=== PATIENT | female | born 1985 | race Caucasian/White ===

== ENCOUNTER → 2017-11-23 18:59 | Outpatient (CLI) | payer MEDICAID | END | disposition home or self-care (01) | LOC: D.LABREF 18:59 | DX: N39.0 Urinary tract infection, site not specified (principal); R31.9 Hematuria, unspecified ==

== ENCOUNTER 2017-12-13 07:07 | Day surgery (SDC) | payer MEDICAID ==
[~2017-12-13] VITALS: Ht 157.5 cm; Wt 46.3 kg
--- NOTE | ~2017-12-13 | OP ---
PATIENT NAME: GEOFFREY BRASWELL MEDICAL RECORD: [id number] :86 LOCATION:D.OPS ADMISSION DATE: SURGEON: BUBBA ZIMMERMAN MD DATE OF OPERATION: 12/13/2017 SURGEON: Bubba Zimmerman MD ANESTHESIA: MAC by Chaitanya Gusman CRNA. PREOPERATIVE DIAGNOSES: Gross hematuria, interstitial cystitis. PROCEDURES: Cystoscopy, intravesical Rimso instillation times 50 mL. FINDINGS: Single ureteral orifices bilaterally. Inflamed bladder, which became more erythematous with bladder filling. No bladder tumors. BLOOD LOSS: None. CLINICAL HISTORY: This is a 32-year-old female, who is a nonsmoker. She has had gross hematuria, which is painless for the past [address] Cariron for kidney stones in the past. He obtained a urine culture and noted that she had E. coli UTI at that time. She then had a CT scan performed at [facility], which was normal. She continued to have occasional episodes of gross hematuria and UTI symptoms. She comes today to have cystoscopy done for the hematuria workup. If we note bladder inflammation as a possible cause of hematuria, then we will start treatment with intravesical Rimso, which is an anti-inflammatory. The patient is not allergic to any medications. She was given ampicillin and sulbactam mission assessment specialist to the OR. DESCRIPTION OF PROCEDURE: The patient was given IV sedation. She was then placed in the dorsal lithotomy position. A 17-Yoruba cystoscope with 70-degree lens was used for visualization. The findings are as outlined above. The trigone and part of the bladder wall was quite vascular. When we filled the bladder up to capacity, the entire bladder surface was quite erythematous and there was some spontaneous bleeding seen. No bladder tumors were seen. The bladder was then emptied through the cystoscope and then the scope was removed. We inserted a red rubber catheter and injected the Rimso 50 solution via a 60 mL catheter-tip syringe. The catheter was then removed, leaving the solution in the bladder. The patient will hold the solution for at least 15 minutes and then void it out. She will come to the office next week to have the second treatment done. TRANSINT:[id number] Voice Confirmation ID: [id number] DOCUMENT ID: [id number] BUBBA ZIMMERMAN MD at 7325 CC: [id number] DICTATION DATE: 12/13/17 1235 UTILITY ASSEMBLER: 12/13/17 1251 [facility] [place] 12/13/17 [place] [id number] [place] [id number]
[2017-12-13 07:45] LABS: HEMATOCRIT 34.8 % (36.0-48.0); HEMOGLOBIN 11.9 g/dL (12-16); MCH 32.7 pg (26.0-34.0); MCHC 34.2 g/dL (31.0-37.0); MCV 95.6 fL (80.0-100.0); MEAN PLATELET VOLUME 10.2 fL (7.4-10.4); RBC 3.64 10x6/uL (4.00-5.40); RDW 12.2 % (11.5-14.5); WBC 3.4 10x3/uL (4.8-10.8)
[2017-12-13 07:54] VITALS: BP 102/69; Ht 157.5 cm; Wt 46.3 kg
[2017-12-13 11:36] LABS: HCG URINE NEGATIVE (NEGATIVE)
== END 2017-12-13 14:10 | disposition home or self-care (01) ==
LOC: D.OPS 07:07
PROVIDERS: Anesthesiology; Urology
DX: R31.0 Gross hematuria (principal); N30.11 Interstitial cystitis (chronic) with hematuria; Z01.812 Encounter for preprocedural laboratory examination

== ENCOUNTER → 2017-12-21 10:17 | Outpatient (CLI) | payer MEDICAID ==
[2017-12-13 07:54] VITALS: BMI 18.7
== END | disposition home or self-care (01) ==
LOC: D.US 10:17
DX: R06.02 Shortness of breath (principal); R10.11 Right upper quadrant pain

== ENCOUNTER → 2018-01-09 12:57 | Outpatient (CLI) | payer MEDICAID ==
[2017-12-13 07:54] VITALS: BMI 18.7
== END | disposition home or self-care (01) ==
LOC: D.LABREF 12:57
DX: N39.0 Urinary tract infection, site not specified (principal)

== ENCOUNTER → 2018-01-11 07:56 | Outpatient (CLI) | payer MEDICAID ==
[2017-12-13 07:54] VITALS: BMI 18.7
[2018-01-14 13:13] LABS: ANTIGLIADIN IGA <1 units (0-19); ANTIGLIADIN IGG 31 units (0-19); IMMUNOGLOBULIN A <5 mg/dL (87-352)
[2018-01-15 14:19] LABS: T-TRANSGLUTAMINASE IGA <2 U/mL (0-3)
== END | disposition home or self-care (01) ==
LOC: D.NM 07:56
PROVIDERS: Internal Medicine Gastroenterology
DX: R10.13 Epigastric pain (principal); R10.9 Unspecified abdominal pain

== ENCOUNTER → 2018-02-06 19:13 | Outpatient (CLI) | payer MEDICAID ==
[2017-12-13 07:54] VITALS: BMI 18.7
== END | disposition home or self-care (01) ==
LOC: D.LABREF 19:13
DX: N39.0 Urinary tract infection, site not specified (principal)

== ENCOUNTER → 2018-04-10 13:48 | Outpatient (CLI) | payer MEDICAID ==
[2017-12-13 07:54] VITALS: BMI 18.7
== END | disposition home or self-care (01) ==
LOC: D.LABREF 13:48
DX: N39.0 Urinary tract infection, site not specified (principal)

== ENCOUNTER 2018-11-21 06:19 | Day surgery (SDC) | payer MEDICAID ==
[~2018-11-21] VITALS: Ht 157.5 cm; Wt 46.3 kg
[2018-11-21 06:42] LABS: HEMOGLOBIN 13.2 g/dL (12-16); MCH 33.3 pg (26.0-34.0); MCHC 33.8 g/dL (31.0-37.0); MCV 98.5 fL (80.0-100.0); MEAN PLATELET VOLUME 10.9 fL (7.4-10.4); RBC 3.96 10x6/uL (4.00-5.40); RDW 12.4 % (11.5-14.5); WBC 3.3 10x3/uL (4.8-10.8)
[2018-11-21 07:56] VITALS: BP 102/61; Ht 157.5 cm; Wt 46.3 kg
[2018-11-21 08:10] LABS: HCG URINE NEGATIVE (NEGATIVE)
--- NOTE | 2018-11-21 10:30 | NUR ---
REC'D FROM SURGERY. FAMILY AT BEDSIDE. ENCOURAGED PATIENT TO HOLD URINE LONG POSSIBLE AND TURN FROM SIDE TO SIDE TO MOVE MEDICATION AROUND BEFORE VOIDING. VERBALIZED UNDERSTANDING.
--- NOTE | 2018-11-21 10:35 | NUR ---
FL TRAChristy SERVED HOWEVER IS ON A GLUTEN FREE DIET AND ONLY DRANKED THE MILK. RELATES SHE DOESN'T WANT ANYTHING ELSE. DR ZIMMERMAN IN AND TALKING WITH PT AND PARENT. QUESTIONS ANSWERED.
--- NOTE | 2018-11-21 11:00 | NUR ---
AMBULATED TO BATHROOM AND VOIDED WITHOUT DIFFICULTY, RELATES HER DAD HAD GONE TO THE CAFETERIA TO EAT. IV DC'D WITH CATHETER INTACT.
--- NOTE | 2018-11-21 11:20 | NUR ---
WRITTEN AND VERBAL DC INST GIVEN TO PT. VERBALIZED UNDERSTANDING.
--- NOTE | 2018-11-21 11:29 | OP ---
PATIENT NAME: GEOFFREY BRASWELL MEDICAL RECORD: [id number] :86 LOCATION:D.OPS ADMISSION DATE: SURGEON: BUBBA ZIMMERMAN MD DATE OF OPERATION: 11/21/2018 SURGEON: Bubba Zimmerman MD ANESTHESIA: TIVA by Doe Lanza CRNA DIAGNOSIS: Chronic interstitial cystitis. PROCEDURES: Cystoscopy, hydrodistention of the bladder to 600 mL, intravesical Rimso instillation 50 mL. FINDINGS: Inflamed bladder with no bladder tumors. Single ureteral orifices bilaterally. ESTIMATED BLOOD LOSS: None. SPECIMENS: None. CLINICAL HISTORY: This is a 32-year-old female, who has a history of pelvic pain, dysuria, dyspareunia and microscopic hematuria. She has been treated with intravesical Rimso in the past. Lately, her symptoms have flared up for the past 2 months. In the past, Rimso did offer her relief. She is currently also being tested in [place] for lupus. She comes today to have cystoscopy, hydrodistention and intravesical Rimso instillation to speed up the control of the symptoms from the interstitial cystitis. SHE IS ALLERGIC TO STADOL. She was given Ancef poison information specialist to the OR. DESCRIPTION OF PROCEDURE: The patient was given IV sedation. She was then placed into dorsal lithotomy position and prepped and draped. A 17-[place]izen [place] cystoscope with 30-degree lens was used for visualization. Findings are as outlined above. We continued to fill her bladder until about 600 mL was in the bladder. At this point, the bladder fluid started to leak out around the scope. The pressure was maintained for about a minute and then the bladder was drained through the cystoscope sheath. The scope was then removed. We inserted a red rubber catheter, 14-[place]izen [place] in size. A 50 mL of Rimso solution were then instilled into the bladder through the red rubber catheter. The catheter was then removed, leaving the solution in the bladder. The patient will hold the solution in for 15 minutes and then void it out. I will see her next week in followup for Rimso treatment #2. TRANSINT:[id number] Voice Confirmation ID: [id number] DOCUMENT ID: [id number] BUBBA ZIMMERMAN MD at 1129 CC: [id number] DICTATION DATE: 11/21/18 1029 CLOTH EXAMINER MACHINE: 11/21/18 1040 [facility] [address] [place] [id number]
--- NOTE | 2018-11-21 11:35 | NUR ---
DC'D HOME WITH FAMILY VIA PRIVATE VEHICLE. TAKEN TO VEHICLE VIA WC. STABLE AT TIME OF DC.
== END 2018-11-21 11:35 | disposition home or self-care (01) ==
LOC: D.OPS 06:19 → D.PAN 11:20 → D.OPS 11:35 → D.PAN 13:30 → D.OPS 13:30
PROVIDERS: Anesthesiology; Urology
DX: N30.10 Interstitial cystitis (chronic) without hematuria (principal); Z79.2 Long term (current) use of antibiotics; Z79.52 Long term (current) use of systemic steroids; Z79.899 Other long term (current) drug therapy; I31.9 Disease of pericardium, unspecified; Z01.812 Encounter for preprocedural laboratory examination

== ENCOUNTER 2019-02-18 08:15 | Day surgery (SDC) | payer MEDICAID ==
[~2019-02-18] VITALS: Ht 157.5 cm; Wt 46.3 kg
[2019-02-18 08:38] LABS: HEMATOCRIT 38.4 % (36.0-48.0); HEMOGLOBIN 13.1 g/dL (12-16); MCH 33.2 pg (26.0-34.0); MCHC 34.1 g/dL (31.0-37.0); MCV 97.5 fL (80.0-100.0); MEAN PLATELET VOLUME 10.3 fL (7.4-10.4); RBC 3.94 10x6/uL (4.00-5.40); RDW 12.2 % (11.5-14.5); WBC 3.6 10x3/uL (4.8-10.8)
[2019-02-18 12:33] VITALS: BP 112/73; Ht 157.5 cm; Wt 46.3 kg
[2019-02-18 13:17] LABS: HCG URINE NEGATIVE (NEGATIVE)
--- NOTE | 2019-02-18 15:06 | NUR ---
1450 ROUNDS BY ELSIE MARSHALL. PROCEDURE DISCUSSED WITH PATIENT. RX FOR NORCO 5NG TO CHART. PT SERFVED FULL LIQUID DIET. Samson SU R.N. [id number] REPORT TO [place] MENDOZA R.N.. Samson SU R.N.
--- NOTE | 2019-02-18 15:11 | NUR ---
6350 REPORT FROM PIEDAD SU RN. [id number] A NORCO TAKEN TO ROOM PT DECLINED BECAUSE OF NAUSEA, NO EMESIS, COOL CLOTH TO FACE, BASIN PROVIDED, NORCO HELT AT THIS TIME. CALL LIGHT AT BEDSIDE IV OPEN.
--- NOTE | 2019-02-18 15:46 | NUR ---
1540 UP TO BR VOIDS BLOODY URINE, NAUSEA WITHOUT EMESIS WITH AMBULATION, STATES WILL TAKE SOMETHING FOR NAUSEA NOW, ORDERED ZOFRAN AND GIVEN PER EMAR. COOL CLOTH TO FACE. STATES URINATION BURNED.
--- NOTE | 2019-02-19 08:33 | OP ---
PATIENT NAME: GEOFFREY VELASCO MEDICAL RECORD: [id number] :86 LOCATION:D.OPS ADMISSION DATE: SURGEON: BUBBA ZIMMERMAN MD DATE OF OPERATION: 02/18/2019 SURGEON: Bubba Zimmerman MD ANESTHESIA: TIVA by Radha Saha CRNA. DIAGNOSES: Interstitial cystitis, urge urinary incontinence. PROCEDURES: Cystoscopy, hydrodistention of the bladder, intravesical Botox injection 100 units, and intravesical Rimso instillation 50 mL. FINDINGS: Single ureteral orifices bilaterally. No bladder tumors. Diffuse bladder inflammation. ESTIMATED BLOOD LOSS: None. CLINICAL HISTORY: This is a 33-year-old female, who has a longstanding history of interstitial cystitis. She has been treated with intravesical Rimso in the past. It did work, but it only lasted for about 2 months and then the symptoms had come back. She has suprapubic pain with pelvic pain and dyspareunia. She has urinary urgency and frequency and occasional urge incontinence. These have not responded to any overactive bladder medications. She comes today to have a hydrodistention as well as intravesical Rimso as well as intravesical Botox to try to control her symptoms. She is not allergic to medications. She was given Ancef waiter/waitress second class to the OR. DESCRIPTION OF PROCEDURE: The patient was given IV sedation. She was placed in dorsal lithotomy position and prepped and draped. The cystoscope was introduced using an obturator. She has diffuse bladder inflammation noted. Hydrodistention was performed by inflating the bladder to 500 mL and holding the bladder in the underdistended state for 2-3 minutes. During that time, we saw petechial hemorrhages form, which are glomerulations. Then, we introduced the Botox needle. This was injected at 10 different locations with 1 mL of Botox solution. Each mL of Botox solution has 10 units of Botox dissolved in it. Thus, she had a total of 100 units of Botox. Finally, the bladder was completely emptied through the cystoscope sheath. A red rubber catheter was inserted into the bladder. Through the lumen of the catheter, we instilled 50 mL of Rimso solution into the bladder and then the catheter was removed. This left the solution in the bladder. She will hold the solution in for at least 15 minutes and then void it out. I will see her in followup in 2 weeks' time. TRANSINT:[id number] Voice Confirmation ID: [id number] DOCUMENT ID: [id number] BUBBA ZIMMERMAN MD at 0833 CC: [id number] DICTATION DATE: 02/18/19 1441 MEAT BONER AND SLICER: 02/18/19 1621 [facility] [place] 02/18/19 [place] [id number]
== END 2019-02-18 18:25 | disposition home or self-care (01) ==
LOC: D.OPS 08:15 → D.PAN 11:00 → D.OPS 11:00
PROVIDERS: Anesthesiology; ATTEND Urology
DX: N30.10 Interstitial cystitis (chronic) without hematuria (principal); N39.41 Urge incontinence; Z01.812 Encounter for preprocedural laboratory examination

== ENCOUNTER → 2019-03-05 09:28 | Outpatient (CLI) | payer MEDICAID ==
[2019-02-18 12:33] VITALS: BMI 18.7
== END | disposition home or self-care (01) ==
LOC: D.RAD 09:28
PROVIDERS: ATTEND Urology
DX: R10.9 Unspecified abdominal pain (principal); Z87.442 Personal history of urinary calculi

== ENCOUNTER → 2019-03-07 15:16 | Outpatient (CLI) | payer MEDICAID ==
[2019-02-18 12:33] VITALS: BMI 18.7
== END | disposition home or self-care (01) ==
LOC: D.CT 15:16
PROVIDERS: ATTEND Urology
DX: R10.9 Unspecified abdominal pain (principal)

== ENCOUNTER → 2019-06-30 19:23 | Outpatient (CLI) | payer MEDICAID ==
[2019-02-18 12:33] VITALS: BMI 18.7
== END | disposition home or self-care (01) ==
LOC: D.LABREF 19:23
PROVIDERS: ATTEND Urology
DX: Z00.01 Encounter for general adult medical examination with abnormal findings (principal)

== ENCOUNTER 2019-07-10 07:01 | Day surgery (SDC) | payer MEDICAID ==
[~2019-07-10] VITALS: Ht 157.5 cm; Wt 47.7 kg
[2019-07-10 07:31] LABS: HEMATOCRIT 38.6 % (36.0-48.0); HEMOGLOBIN 13.8 g/dL (12-16); MCH 33.3 pg (26.0-34.0); MCHC 35.8 g/dL (31.0-37.0); MCV 93.2 fL (80.0-100.0); MEAN PLATELET VOLUME 10.5 fL (7.4-10.4); RBC 4.14 10x6/uL (4.00-5.40); RDW 11.9 % (11.5-14.5); WBC 4.4 10x3/uL (4.8-10.8)
[2019-07-10 07:54] VITALS: BP 119/75; Ht 157.5 cm; Wt 47.7 kg
[2019-07-10 09:04] LABS: HCG URINE NEGATIVE (NEGATIVE)
--- NOTE | 2019-07-10 11:24 | NUR ---
1100-REMOVED IV FROM RFA WITH CATH INTACT,DISPOSED INTO SHARPS CONTAINER. COVERED SITE WITH A BANDAID.
--- NOTE | 2019-07-10 11:25 | NUR ---
1115-DISCHARGE CRITERIA MET. REVIEWED POST OP DISCHARGE INSTRUCTIONS WITH PT. VERBALIZED UNDERSTANDING WITHOUT QUESTIONS OR CONCERNS. ESCORTED OUT VIA W/C WITH FRIEND DRIVING HOME
--- NOTE | 2019-07-10 11:38 | OP ---
PATIENT NAME: GEOFFREY VELASCO MEDICAL RECORD: [id number] :86 LOCATION:D.OPS ADMISSION DATE: SURGEON: JOSEFINA ZIMMERMAN MD DATE OF OPERATION: 07/10/2019 SURGEON: Josefina Zimmerman MD LAND ECONOMIST: ANATOLIY by Shelton Membreno CRNA. DIAGNOSES: Interstitial cystitis, urge urinary incontinence. PROCEDURES: Cystoscopy, hydrodistention of the bladder, intravesical Botox injection 100 units, intravesical Rimso instillation. BLOOD LOSS: Minimal. CLINICAL HISTORY: This is a 33-year-old female with a history of interstitial cystitis. She had treatment with cystoscopy, hydrodistention, and intravesical Rimso instillation on 02/18/2019. She had excellent control of her symptoms until recently. Her symptoms have come back. Urine cultures have shown no growth. She comes today for treatment as stated above. SHE IS ALLERGIC TO STADOL. She was given Ancef adoption manager to the OR. DESCRIPTION OF PROCEDURE: The patient was given IV sedation. She was placed into lithotomy position and prepped and draped. A 21-Liberian cystoscope with 30-degree lens was used for visualization. The bladder shows some diffuse inflammation. Once the bladder was hydrodistended to about 600 mL for about 2 minutes, there was significant intravesical bleeding noted from glomerulations. The bladder was then partly deflated and then at 10 different locations 1 mL of Botox solution was injected into the bladder wall. Each mL has 10 units of Botox dissolved in it. We avoided the ureteral orifices on the trigone for the injection. Once the injections were finished, the bladder was fully emptied. The scope was removed. A 14-Liberian red rubber catheter was introduced into the bladder. Then, 15 mL of intravesical Rimso solution was then instilled into the bladder. The catheter was removed, leaving the Rimso solution in the bladder. She will hold it in for 15 minutes and then void it out. I will see her in followup in 2 weeks' time. TRANSINT:[id number] Voice Confirmation ID: [id number] DOCUMENT ID: [id number] JOSEFINA ZIMMERMAN MD at 1138 CC: [id number] DICTATION DATE: 07/10/19 0957 INSTRUCTIONAL MEDIA SERVICES TECHNICIAN: 07/10/19 1108 [facility] 07/10/19 [facility] [address] [place] [address]
== END 2019-07-10 11:15 | disposition home or self-care (01) ==
LOC: D.OPS 07:01 → D.PAN 13:20 → D.OPS 13:20 → D.PAN 14:45
PROVIDERS: Anesthesiology; ATTEND Urology
DX: N39.41 Urge incontinence (principal); N30.10 Interstitial cystitis (chronic) without hematuria

== ENCOUNTER 2020-01-01 06:02 | Day surgery (SDC) | payer MEDICAID ==
[~2020-01-01] VITALS: Ht 157.5 cm; Wt 47.2 kg
[2020-01-01 06:20] LABS: HEMATOCRIT 39.3 % (36.0-48.0); HEMOGLOBIN 13.1 g/dL (12-16); MCH 32.7 pg (26.0-34.0); MCHC 33.3 g/dL (31.0-37.0); MEAN PLATELET VOLUME 10.6 fL (7.4-10.4); RBC 4.01 10x6/uL (4.00-5.40); RDW 12.2 % (11.5-14.5); WBC 6.5 10x3/uL (4.8-10.8)
[2020-01-01 07:08] VITALS: BP 104/73; Ht 157.5 cm; Wt 47.2 kg
[2020-01-01 07:24] LABS: HCG URINE NEGATIVE (NEGATIVE)
--- NOTE | 2020-01-01 12:00 | NUR ---
1156-REC'D FROM RR. AWAKE AND ALERT.VSS. DENIES PAIN. IV PATENT AT O. REVIEWED DISCHARGE CRITERIA. CL IN EASY REACH
--- NOTE | 2020-01-01 12:01 | NUR ---
1201-ABLE TO AMBULATE TO RESTROOM AND URINATE WITHOUT COMPLICATIONS. FULL LIQUID TRAY AT BEDSIDE
--- NOTE | 2020-01-01 12:38 | OP ---
PATIENT NAME: GEOFFREY VELASCO MEDICAL RECORD: [id number] :86 LOCATION:D.OPS ADMISSION DATE: SURGEON: BUBBA ZIMMERMAN MD DATE OF OPERATION: 01/01/2020 SURGEON: Bubba Zimmerman MD ANESTHESIA: TIVA by Trina Gimenez CRNA. DIAGNOSES: Urge urinary incontinence, interstitial cystitis. PROCEDURES: Cystoscopy, hydrodistention of the bladder, intravesical Botox injection 100 units, intravesical Rimso treatment 50 mL. FINDINGS: On cystoscopy, diffusely inflamed bladder with no bladder tumors. Single ureteral orifices bilaterally. BLOOD LOSS: None. CLINICAL HISTORY: This is a 34-year-old female, who has a long history of interstitial cystitis. She has had treatment with intravesical Rimso in the past, which has worked. She also has severe urge incontinence. She had treatment with intravesical Botox in the past and that also did work. She wants to have both treatments combined today. DESCRIPTION OF PROCEDURE: The patient was given IV sedation. She was placed in the lithotomy position. Her preoperative antibiotics were given. She was scoped with a 17-Filipino cystoscope with 30-degree lens. Findings as outlined above. Her bladder was filled to about 600 mL of capacity. While the bladder was being hydrodistended at 10 different locations, we injected 1 mL of Botox solution. Each mL contains 10 units of Botox dissolved in it. Once this was done, the bladder was emptied through the cystoscope sheath. We then inserted a red rubber catheter into the bladder. Through the lumen of the catheter, 50 mL of Rimso solution was instilled. Once the solution was in the bladder. The catheter was removed entirely. The patient will hold the solution in for about 15 minutes or more and then void it out. I will see her in followup in 2 weeks' time to check on her voiding symptoms. TRANSINT:[id number] Voice Confirmation ID: [id number] DOCUMENT ID: [id number] BUBBA ZIMMERMAN MD at 1238 CC: [id number] DICTATION DATE: 01/01/20 1140 ENGINEERING LECTURER: 01/01/20 1206 [address] [place] [id number] [place] [address]
--- NOTE | 2020-01-01 13:01 | NUR ---
1237-ZOFRAN 4MG IVP ADMINISTERED FOR NAUSEA. VSS. PAIN /. DESCRIBES PRESSURE AND CRAMPING. IV PATENT AT [facility].
--- NOTE | 2020-01-01 13:27 | NUR ---
1325-REPORTS VOMITED X 1 EPISODE WITH NAUSEA SUBSIDING.
--- NOTE | 2020-01-01 15:18 | NUR ---
1431-CONTINUE TO HAVE NAUSEA AND VOMITING. REPORTS SHE DOES EVERYTIME SHE TAKES ANY TYPE OF PAIN MEDICATIONS. HAD DILAUDID 1MG IN RR. PER VERBAL ORDER BY DR. ZIMMERMAN ADMINISTERED PHENERGAN 25MG IM X 1. VSS. NO DISTRESS. PAIN 12/01
--- NOTE | 2020-01-01 15:43 | NUR ---
1530-NAUSEA SUBSIDED. ESCORTED OUT VIA W/C WITH FRIEND WITH PT TO DRIVE HOME. DISCHARGE PAPERWORK IN HAND
== END 2020-01-01 15:30 | disposition home or self-care (01) ==
LOC: D.OPS 06:02 → D.PAN 08:30 → D.OPS 08:40 → D.PAN 08:40 → D.OPS 15:15 → D.PAN 15:15 → D.OPS 15:30
PROVIDERS: Anesthesiology; ATTEND Urology
DX: N39.41 Urge incontinence (principal); N30.10 Interstitial cystitis (chronic) without hematuria; N39.0 Urinary tract infection, site not specified

== ENCOUNTER → 2020-01-20 17:35 | Outpatient (CLI) | payer MEDICAID ==
[2020-01-01 07:08] VITALS: BMI 19.0
== END | disposition home or self-care (01) ==
LOC: D.LABREF 17:35
PROVIDERS: ATTEND Urology
DX: R31.9 Hematuria, unspecified (principal)